=== PATIENT | male | born 1950 | race Asian ===

== ENCOUNTER 2020-05-03 10:20 | Emergency (ER) | payer SELFPAY ==
[~2020-05-03] VITALS: Ht 170.2 cm; Wt 68.0 kg
--- NOTE | 2020-05-03 10:21 | NUR ---
CHECO KRAMER TO CHAIR D
[2020-05-03 10:23] VITALS: BP 160/101
--- NOTE | 2020-05-03 10:37 | NUR ---
69 YO M VANIA KRAMER FOR PREBOOK FOR HTN.
--- NOTE | 2020-05-03 10:59 | NUR ---
[facility] USED BY DR. MCKENNA FOR KENYAN MANDARIN TRANSLATION. REFERENCE # [id number]
[2020-05-03] MEDS ORDERED: amLODIPine 5 MG TAB PO ONE (11:00)
[2020-05-03] MEDS ORDERED: AMLO-3 PO (11:07)
[2020-05-03 11:28] VITALS: BP 147/105
--- NOTE | 2020-05-03 11:28 | NUR ---
PATIENT BIB [place] [employer]. PATIENT EXAMINED BY DR. MCKENNA. PATIENT MEDICALLY CLEARED AND RELEASED IN CUSTODY IN STABLE CONDITION. ORIGINAL PRE-BOOK FORM GIVEN TO OFFICER DOROTHY. PT DISCHARGED WITH RX FOR AMLODIPINE PROVIDED.
== END 2020-05-03 11:28 ==
LOC: MED 10:20
DX: I10 Essential (primary) hypertension (principal); R42 Dizziness and giddiness; Z02.89 Encounter for other administrative examinations
CPT/HCPCS: 99283